=== PATIENT | female | born 1950 | race Caucasian/White ===

== ENCOUNTER 2023-01-15 02:11 | Emergency (ER) | payer MEDICARE, SELFPAY ==
[2023-01-15 02:14] VITALS: BP 118/72; PULSE 89; RESP 16; TEMP 36.8; O2SAT 96
--- NOTE | 2023-01-15 02:15 | DI.CT_ITS ---
Exam(s) CT HEAD CERVICAL SPINE WO EXAM: CT HEAD CERVICAL SPINE WO CLINICAL HISTORY: fall, pain. TECHNIQUE: Imaging Protocol: Axial computed tomography images with coronal and sagittal reformatted images were created and reviewed COMPARISON: CT HEAD WITHOUT CONTRAST from 09/29/2016 FINDINGS: BRAIN: There is air within the scalp soft tissues the frontal sinuses consistent with laceration. No radiop aque foreign body noted. There are no fractures frontal sinuses. There is fluid noted in the right maxillary sinus and right sphenoid sinus and small amount of fluid in the left maxillary sinus. No o bvious sinus fractures. No obvious orbital fractures. There is no evidence of intracranial hemorrhage, mass effect, or shift of midline structures. There are no extra-axial fluid collections. The ventricles are not enlarged or shifted and there is no blo od within the ventricular system nor within the basal cisterns. CERVICAL SPINE: There is no evidence of fracture nor listhesis. No significant prevertebral soft tissue swelling. There is chronic disc space narrowing at C5-6 and C6-7 levels. Multilevel facet arthropathy noted. There is no significant facet joint malalignment. No significant osseous lesions evident. IMPRESSION: No acute intracranial findings on this noninfused CT scan of the brain.Frontal scalp laceration. The re is no fracture nor fluid in the immediately subjacent frontal sinuses. There is fluid in the maxi llary sinuses right more than left without obvious fractures. Clinical correlation recommended to de termine facial bone CT scan would be recommended. No evidence of cervical spine fracture, malalignment, nor acute compromise of the cervical spinal can al. RADIATION DOSE DELIVERED: 1,233.42mGy.cm Total DLP DATA REPOSITORY: All CT scans at this facility are submitted to the National Radiology Data Registry (NRDR) Dose Index Registry (DIR) with the [employer] ([employer]). RADIATION OPTIMIZATION: All CT scans at this facility use at least one of these dose optimization te chniques: automated exposure control; mA and/or kV adjustment per patient size (includes targeted exa ms where dose is matched to clinical indication); or iterative reconstruction.
--- NOTE | 2023-01-15 02:27 | ED.GENADUL_ITS ---
Discharge Plan Disposition Patient Disposition: Home Condition: Stable Discharge Details Clinical Impression: Blunt head trauma, Forehead laceration Primary Care Provider: Unknown,Unknown ED Provider: Eduardo Mason Home Meds and New Rx's Prescriptions: Continued ibuprofen 800 MG tablet 800 mg PO BID PRNQty: 180 omeprazole 20 MG capsule,delayed release(DR/EC) 40 mg PO DAILY Qty: 90 3RF multivitamin [Daily Multiple] 1 EACH tablet 1 ea PO DAILY acetaminophen [Tylenol] 325 MG tablet 650 mg PO Q4H PRN PRNQty: 0 0RF Rx Instructions: no more than 3 g daily duloxetine 60 mg capsule,delayed release(DR/EC) 60 mg PO DAILY Patient Comments: TAKE 1 CAPSULE BY MOUTH EVERY DAY AT BEDTIME doxycycline monohydrate 100 mg capsule 100 mg PO DAILY Patient Comments: TAKE 1 CAPSULE BY MOUTH EVERY 12 HOURS FOR 10 DAYS atorvastatin 40 mg tablet 40 mg PO DAILY Patient Comments: TAKE 1 TABLET BY MOUTH ONCE DAILY esomeprazole magnesium 40 mg capsule,delayed release(DR/EC) 40 mg PO DAILY Patient Comments: TAKE 1 CAPSULE BY MOUTH ONCE DAILY mirtazapine 15 mg tablet 15 mg PO .QHS Patient Comments: TAKE 1 TABLET BY MOUTH ONCE DAILY AT BEDTIME fluticasone propionate 50 mcg/actuation spray,suspension INTRANASAL Patient Comments: USE 1 SPRAY(S) IN EACH NOSTRIL ONCE DAILY aripiprazole 5 mg tablet 5 mg PO DAILY Patient Comments: TAKE 1 TABLET BY MOUTH ONCE DAILY FOR 30 DAYS Discharge Instructions Instructions: Facial Laceration (ED) Additional Instructions: Return in 7-10 days to have the sutures removed, sooner if signs of infection such as spreading redness or yellow/white discharge from the wound if you feel more ill, have severe head pain or persistent vomiting return to the emergency department Medical Decision Making 72 yo female comes in with a forehead laceration after a fall. She is staying in an [place], woke up tonight to urinate and tripped on a quilt that is on the floor causing her to fall foreward and hit her head on a dresser. Denies loc and has no n/v, denies preceding symptoms states it was purely a mechanical fall and felt well all day yesterday. She is caox4 on arrival and ambulatory. She has a 2.5cm linear laceration that runs verticallon the left mid forehead. PERRL, EOMI, no other pain elsewhere and has no tenderness of chest, abdomen, or back and has no c spine tenderness. Given her age will proceed with ct head/c spine to evaluate for traumatic injuries. imaging unremarkable, pt stable and no new complaints, closed wound with 2 sutures, no complications and she tolerated well. STable for d/c, will return for suture removal and return precautions given Differential Diagnosis Differential Diagnosis: lac, tbi, concussion Imaging Data Radiologic Study: Attestation: I personally reviewed and interpreted this imaging study as follows: Imaging: CT Scan Radiologist's impression: no acute findings HPI General Mode of arrival: ambulatory . Date/Time Provider Initiated Documentation: 01/15/23 02:12 . Limitations to Documentation: no limitations . Information obtained by: patient . History of Present Illness 72 year old F presents to the emergency department with the chief complaint of fall, head trauma, described as moderate, Patient started experiencing this hour(s) (1) and it has been constant. No relieving factors improve symptom(s), No exacerbating factors reported . Patient did receive the following treatments prior to arrival, none Related Data Home Medications Medication Instructions Recorded Confirmed multivitamin (Daily Multiple 1 ea PO DAILY 09/29/16 01/15/23 tablet) acetaminophen 325 mg tablet 650 mg PO Q4H PRN PRN ##0 10/01/16 01/15/23 (Tylenol) ibuprofen 800 mg tablet 800 mg PO BID PRN #180 tab-caps 04/07/17 01/15/23 omeprazole 20 mg capsule,delayed 40 mg PO DAILY #90 tab-caps 09/06/17 01/15/23 release aripiprazole 5 mg tablet 5 mg PO DAILY 01/15/23 01/15/23 atorvastatin 40 mg tablet 40 mg PO DAILY 01/15/23 01/15/23 doxycycline monohydrate 100 mg 100 mg PO DAILY 01/15/23 01/15/23 capsule duloxetine 60 mg capsule,delayed 60 mg PO DAILY 01/15/23 01/15/23 release esomeprazole magnesium 40 mg 40 mg PO DAILY 01/15/23 01/15/23 capsule,delayed release fluticasone propionate 50 intranasal 01/15/23 mcg/actuation nasal spray,suspension mirtazapine 15 mg tablet 15 mg PO .QHS 01/15/23 01/15/23 Previous Rx's Medication Instructions Recorded acetaminophen 325 mg tablet 650 mg PO Q4H PRN PRN ##0 10/01/16 (Tylenol) omeprazole 20 mg capsule,delayed 40 mg PO DAILY #90 tab-caps 09/06/17 release Allergies Allergy/AdvReac Type Severity Reaction Status Date / Time iodine Allergy Intermediate SKIN RASH Unverified 01/15/23 02:19 benzalkonium Allergy Unknown PT. Unverified 01/15/23 02:19 REACTED TO TROPICAMIDE zolpidem AdvReac Severe Ataxia, Unverified 01/15/23 02:19 Confusion,psychosis latex AdvReac Mild CONTACT Unverified 01/15/23 02:19 DERMATITIS paraben AdvReac Mild Skin Rash Unverified 01/15/23 02:19 bonopol AdvReac Intermediate Uncoded 01/15/23 02:19 General Stated Complaint: HeadInjury FRANKIE: 3 Review of Systems All systems reviewed & are unremarkable except as noted in HPI and below Constitutional Constitutional: Denies chills, Denies fever(s) and Denies weakness Eyes Eyes: Denies loss of vision Cardiovascular Cardiovascular: Denies chest pain and Denies dyspnea Respiratory Respiratory: Denies cough and Denies dyspnea Gastrointestinal Gastrointestinal: Denies abdominal pain, Denies nausea and Denies vomiting Musculoskeletal Musculoskeletal: Denies joint swelling Neurologic Neurologic: Denies loss of vision and Denies weakness PFSH All Active Problems (Updated 01/15/23 @ 02:57 by Eduardo Mason MD) Blunt head trauma (Acute) Forehead laceration (Acute) Surgical History (Updated 03/30/18 @ 14:34 by [employer] MD) Breast surgery Cyst removal-left breast Cholecystectomy Hysterectomy Family History Mother Essential hypertension Depression Heart disease Hyperlipidemia Renal failure Father Essential hypertension Heart disease Hyperlipidemia Neoplasm COLON Stroke TIA Sister Diabetes Essential hypertension Depression Sister Depression Grandfather Stroke Grandfather Heart disease Grandmother No problems noted. Grandmother Heart disease Son No problems noted. Son No problems noted. Daughter Depression Asthma Brother No problems noted. Social History Smoking/Tobacco Use Status: Former Tobacco Use Smoking risk assessment performed?: Yes Drug use: Occasionally Substance use type: former substance user Do you feel safe in your relationship?: Yes Exam Const General: no acute distress Orientation: alert HENMT Head: no palpable skull fracture and normocephalic Ears: external ears normal General nose exam: external nose normal Mouth: moist mucous membranes Eyes General: appearance normal, both eyes and all related structures Neck Neck: normal visual inspection Resp Effort & Inspection: normal respiratory effort and able to speak in complete sentences Cardio Rate: regular rate Skin General skin exam: no rashes or lesions noted Neuro General: patient alert and patient oriented x3 Extrem General: normal to inspection Psych Mental Status: mental status grossly normal Course Vital Signs Vital signs: Vital Signs Temperature 36.8 C 01/15/23 02:14 Pulse 89 01/15/23 02:14 Respiratory Rate 16 01/15/23 02:14 Blood Pressure 118/72 01/15/23 02:14 Pulse Oximetry 96 01/15/23 02:14 Temperature 36.8 C 01/15/23 02:14 Temperature Source Temporal Artery Scan 01/15/23 02:14 Pulse 89 01/15/23 02:14 Respiratory Rate 16 01/15/23 02:14 Respiratory Effort Normal 01/15/23 02:14 Blood Pressure 118/72 01/15/23 02:14 Blood Pressure Position Supine 01/15/23 02:14 Pulse Oximetry 96 01/15/23 02:14 Oxygen Delivery Method Room Air 01/15/23 02:14 Oxygen Flow Rate 0 01/15/23 02:14 Pain Level 4 01/15/23 02:14 Procedures Laceration Laceration 1: Site: face Side (If applicable): left Size (cm): 2.5 Description: linear Depth: simple, single layer Local Anesthetic: Lidocaine 1% and with Epi Amount of anesthesia used (mL): 6 Pre-repair: wound explored and irrigated extensively Skin layer closed with: nylon Size (cm): 5-0 Number of sutures: 2 Technique: simple, interrupted
[2023-01-15] MEDS: Acetaminophen 500 MG TAB 1000 MG PO (02:52)
--- NOTE | 2023-01-15 02:58 | DI.VRAD_ITS ---
PROCEDURE INFORMATION: Exam: CT Head Without Contrast Exam date and time: 01/15/2023 2:45 AM Age: 72 years old Clinical indication: Injury or trauma; Fall; Concussion/head injury; Consciousness not specified TECHNIQUE: Imaging protocol: Computed tomography of the head without contrast. Radiation optimization: All CT scans at this facility use at least one of these dose optimization techniques: automated exposure control; mA and/or kV adjustment per patient size (includes targeted exams where dose is matched to clinical indication); or iterative reconstruction. COMPARISON: MRI - BRAIN W/WO CONTRAST 09/30/2016 12:00 AM FINDINGS: Brain: Normal. No hemorrhage. Unremarkable white matter. No mass effect. Cerebral ventricles: No ventriculomegaly. Paranasal sinuses: Secretions right maxillary sphenoid sinuses. Mastoid air cells: Visualized mastoid air cells are well aerated. Bones/joints: Unremarkable. No acute fracture. Soft tissues: Unremarkable. IMPRESSION: No acute intracranial findings. PROCEDURE INFORMATION: Exam: CT Cervical Spine Without Contrast Exam date and time: 01/15/2023 2:45 AM Age: 72 years old Clinical indication: Injury or trauma; Fall; Concussion/head injury; Consciousness not specified TECHNIQUE: Imaging protocol: Computed tomography of the cervical spine without contrast. Radiation optimization: All CT scans at this facility use at least one of these dose optimization techniques: automated exposure control; mA and/or kV adjustment per patient size (includes targeted exams where dose is matched to clinical indication); or iterative reconstruction. COMPARISON: CR CERV SP.WITH OBL OR FLEX/EXT 04/30/2016 10:31 AM FINDINGS: Bones/joints: No acute fracture. Normal alignment. Lower cervical predominant degenerative disk disease and facet arthropathy with neuroforaminal and canal stenosis.. Lungs: Lung apices are normal. Soft tissues: Unremarkable. IMPRESSION: No acute findings. Dictated and Authenticated by: Eduardo Conley MD. Ordering:JASON Clark MD
--- NOTE | 2023-01-15 04:33 | NUR.NOTE ---
darci gómez applied.Nursing Note:
== END 2023-01-15 04:01 | disposition home or self-care (01) ==
LOC: ER 03:15
PROVIDERS: Emergency Provider Emergency Medicine
DX: S09.90XA Unspecified injury of head, initial encounter (principal); S01.81XA Laceration without foreign body of other part of head, initial encounter; W18.09XA Striking against other object with subsequent fall, initial encounter; Z23 Encounter for immunization
CPT/HCPCS: 12011; 90471; 99285; 70450; 72125; 99284

== ENCOUNTER 2023-01-23 11:12 | Emergency (ER) | payer MEDICARE, SELFPAY ==
--- NOTE | 2023-01-23 11:21 | ED.GENADUL_ITS ---
Discharge Plan Disposition Patient Disposition: Home Discharge Details Chief Complaint: SutureRem Clinical Impression: Encounter for removal of sutures Primary Care Provider: Rose,Local ED Provider: Ludwig Kinsey Home Meds and New Rx's Prescriptions: No Action ibuprofen 800 MG tablet 800 mg PO BID PRNQty: 180 omeprazole 20 MG capsule,delayed release(DR/EC) 40 mg PO DAILY Qty: 90 3RF multivitamin [Daily Multiple] 1 EACH tablet 1 ea PO DAILY acetaminophen [Tylenol] 325 MG tablet 650 mg PO Q4H PRN PRNQty: 0 0RF Rx Instructions: no more than 3 g daily duloxetine 60 mg capsule,delayed release(DR/EC) 60 mg PO DAILY Patient Comments: TAKE 1 CAPSULE BY MOUTH EVERY DAY AT BEDTIME doxycycline monohydrate 100 mg capsule 100 mg PO DAILY Patient Comments: TAKE 1 CAPSULE BY MOUTH EVERY 12 HOURS FOR 10 DAYS atorvastatin 40 mg tablet 40 mg PO DAILY Patient Comments: TAKE 1 TABLET BY MOUTH ONCE DAILY esomeprazole magnesium 40 mg capsule,delayed release(DR/EC) 40 mg PO DAILY Patient Comments: TAKE 1 CAPSULE BY MOUTH ONCE DAILY mirtazapine 15 mg tablet 15 mg PO .QHS Patient Comments: TAKE 1 TABLET BY MOUTH ONCE DAILY AT BEDTIME fluticasone propionate 50 mcg/actuation spray,suspension INTRANASAL Patient Comments: USE 1 SPRAY(S) IN EACH NOSTRIL ONCE DAILY aripiprazole 5 mg tablet 5 mg PO DAILY Patient Comments: TAKE 1 TABLET BY MOUTH ONCE DAILY FOR 30 DAYS Discharge Instructions Additional Instructions: Please monitor for any signs of infection and return the emergency department immediately if this occurs. Otherwise keep wound clean and dry follow-up with primary care provider as needed Referrals: Primary Care Provider [Outside] Medical Decision Making Patient presents the emergency department for suture removal. Patient denies any worsening of symptoms. 2 sutures were removed without incidence. No dehiscence, discussed with patient acute wound care and monitoring of symptoms along with return and follow-up precautions. After discussion of diagnosis and plan of care patient has no further needs, questions, or concerns and states clear understanding to return to the emergency department for any worsening symptoms. This documentation was generated using [employer] system, please disregard any oddities of phrase or misspellings. HPI General Mode of arrival: ambulatory . Date/Time Provider Initiated Documentation: 01/23/23 11:13 . Limitations to Documentation: no limitations . Information obtained by: patient, RN notes reviewed and old records reviewed . History of Present Illness 72 year old F presents to the emergency department with the chief complaint of Suture removal, Patient notes no other symptoms.. Related Data Home Medications Medication Instructions Recorded Confirmed multivitamin (Daily Multiple 1 ea PO DAILY 09/29/16 01/23/23 tablet) acetaminophen 325 mg tablet 650 mg PO Q4H PRN PRN ##0 10/01/16 01/23/23 (Tylenol) ibuprofen 800 mg tablet 800 mg PO BID PRN #180 tab-caps 04/07/17 01/23/23 omeprazole 20 mg capsule,delayed 40 mg PO DAILY #90 tab-caps 09/06/17 01/23/23 release aripiprazole 5 mg tablet 5 mg PO DAILY 01/15/23 01/23/23 atorvastatin 40 mg tablet 40 mg PO DAILY 01/15/23 01/23/23 doxycycline monohydrate 100 mg 100 mg PO DAILY 01/15/23 01/15/23 capsule duloxetine 60 mg capsule,delayed 60 mg PO DAILY 01/15/23 01/23/23 release esomeprazole magnesium 40 mg 40 mg PO DAILY 01/15/23 01/23/23 capsule,delayed release fluticasone propionate 50 intranasal 01/15/23 mcg/actuation nasal spray,suspension mirtazapine 15 mg tablet 15 mg PO .QHS 01/15/23 01/23/23 Previous Rx's Medication Instructions Recorded acetaminophen 325 mg tablet 650 mg PO Q4H PRN PRN ##0 10/01/16 (Tylenol) omeprazole 20 mg capsule,delayed 40 mg PO DAILY #90 tab-caps 09/06/17 release Allergies Allergy/AdvReac Type Severity Reaction Status Date / Time iodine Allergy Intermediate SKIN RASH Unverified 01/23/23 11:17 benzalkonium Allergy Unknown PT. Unverified 01/23/23 11:17 REACTED TO TROPICAMIDE zolpidem AdvReac Severe Ataxia, Unverified 01/23/23 11:17 Confusion,psychosis latex AdvReac Mild CONTACT Unverified 01/23/23 11:17 DERMATITIS paraben AdvReac Mild Skin Rash Unverified 01/23/23 11:17 bonopol AdvReac Intermediate Uncoded 01/23/23 11:17 General Stated Complaint: SutureRem FRANKIE: 4 Review of Systems Constitutional Constitutional: Denies fever(s) Integumentary/Breasts Skin/Breast: Denies rash PFSH All Active Problems Blunt head trauma (Acute) Forehead laceration (Acute) Encounter for removal of sutures (Acute) Surgical History Breast surgery Cyst removal-left breast Cholecystectomy Hysterectomy Family History Mother Essential hypertension Depression Heart disease Hyperlipidemia Renal failure Father Essential hypertension Heart disease Hyperlipidemia Neoplasm COLON Stroke TIA Sister Diabetes Essential hypertension Depression Sister Depression Grandfather Stroke Grandfather Heart disease Grandmother No problems noted. Grandmother Heart disease Son No problems noted. Son No problems noted. Daughter Depression Asthma Brother No problems noted. Social History Smoking/Tobacco Use Status: Former Tobacco Use Smoking risk assessment performed?: Yes Drug use: Occasionally Substance use type: former substance user Do you feel safe in your relationship?: Yes Exam Const General: cooperative, comfortable and no acute distress Orientation: alert, awake and oriented x3 Skin Rashes: no rashes Trauma: laceration (healing well laceration without erythema, purulence, or dehiscence.) Course Vital Signs Vital signs: Temperature Source Skin 01/23/23 11:15 Respiratory Effort Normal 01/23/23 11:18 Blood Pressure Position Sitting 01/23/23 11:15 Oxygen Delivery Method Room Air 01/23/23 11:15 Oxygen Flow Rate 0 01/23/23 11:15 Pain Level 0 01/23/23 11:15
== END 2023-01-23 14:53 | disposition home or self-care (01) ==
PROVIDERS: Emergency Provider Nurse Practitioner Family
DX: Z48.02 Encounter for removal of sutures (principal)

== ENCOUNTER 2023-11-25 21:21 | Outpatient (REF) | payer MEDICARE, SELFPAY ==
[2023-11-25 21:14] LABS: Bacteria Few HPF (Negative); Casts Negative LPF (Negative); Crystals Negative HPF (Negative); Epithelial Cells Few HPF (Negative); Mucus Negative (Negative); RBC 0-2 HPF (0-2)
[2023-11-25 21:15] LABS: C & S Indicated? C&S Done As Ordered
== END 2023-11-25 21:22 | disposition home or self-care (01) ==
LOC: LBN 21:21
PROVIDERS: Visit Provider Physician Assistant Medical
DX: R30.0 Dysuria (principal); B96.29 Other Escherichia coli [E. coli] as the cause of diseases classified elsewhere
CPT/HCPCS: 87077; 81015; 87086; 87186

== ENCOUNTER 2024-02-14 10:56 | Emergency (ER) | payer MEDICARE, SELFPAY ==
[2024-02-14] VITALS (53 sets, daily range): BP systolic 113–132; BP diastolic 71–99; PULSE 78–105; RESP 14–29; TEMP 36.6; O2SAT 94–98
--- NOTE | 2024-02-14 11:00 | DI.RAD_ITS ---
Exam(s) XR PORTABLE CHEST AP EXAM: XR PORTABLE CHEST AP CLINICAL HISTORY: Chest pain, SOB. TECHNIQUE: 2D digital imaging was performed. COMPARISON: CR CHEST 2 VIEWS PA,LAT from 05/17/2017 FINDINGS: Single AP portable view. There chest leads in place. Heart size normal. Mediastinum is not widened. Left lung is clear. There mildly increased markings in the right lower lobe but without significant change from 2017 and most probably just vascular markings. There are no pleural effusions. No pulmo nary edema. No pneumothorax. No fractures. IMPRESSION: No obvious acute pulmonary findings on this single AP portable view of the chest. DATA REPOSITORY: RADIATION DOSE DELIVERED:
--- NOTE | 2024-02-14 11:00 | RT.EKG_ITS ---
APPROVED REPORT Exam: Resting ECG Reason for Exam: Chest Pain Patient Location: E HR:99 bpm ECG Measurements Heart Rate 99 AXIS RI 141 P 69 QRSd 88 QRS 49 QT 382 T 48 QTc 475 Conclusion Sinus rhythm...normal P axis, V-rate 60- 99 Ventricular premature complex...V complex w/ short R-R interval Probable left atrial enlargement...P >50mS, <-0.10mV V1
--- NOTE | 2024-02-14 11:31 | ED.GENADUL_ITS ---
Discharge Plan Disposition Patient Disposition: Home Condition: Stable Discharge Details Clinical Impression: Pneumonia, Hypomagnesemia Primary Care Provider: Unknown,Unknown ED Provider: Krista Hairston Home Meds and New Rx's Prescriptions: New doxycycline hyclate 100 mg capsule 100 mg PO BID 10 Days Qty: 20 0RF Rx Instructions: Take one tablet twice daily x 10 days Continued ibuprofen 800 MG tablet 800 mg PO BID PRNQty: 180 multivitamin [Daily Multiple] 1 EACH tablet 1 ea PO DAILY acetaminophen [Tylenol] 325 MG tablet 650 mg PO Q4H PRN PRNQty: 0 0RF Rx Instructions: no more than 3 g daily duloxetine 60 mg capsule,delayed release(DR/EC) 60 mg PO DAILY Patient Comments: TAKE 1 CAPSULE BY MOUTH EVERY DAY AT BEDTIME atorvastatin 40 mg tablet 40 mg PO DAILY Patient Comments: TAKE 1 TABLET BY MOUTH ONCE DAILY esomeprazole magnesium 40 mg capsule,delayed release(DR/EC) 40 mg PO DAILY Patient Comments: TAKE 1 CAPSULE BY MOUTH ONCE DAILY mirtazapine 15 mg tablet 15 mg PO .QHS Patient Comments: TAKE 1 TABLET BY MOUTH ONCE DAILY AT BEDTIME hydroxyzine pamoate 50 mg capsule 50 mg PO DAILY PRN Patient Comments: TAKE 1 CAPSULE BY MOUTH AT BEDTIME NEEDED FOR ANXIETY ONCE DAILY Multivitamin Women 50 Plus 8 mg iron-400 mcg-50 mcg tablet 1 tab PO DAILY biotin 1 mg capsule 1 mg PO DAILY docusate sodium [Colace] 100 mg capsule 100 mg PO DAILY Discharge Instructions Instructions: Low Magnesium Level, Pneumonia, Adult ED Additional Instructions: The x-ray today shows that you have pneumonia. No evidence of heart attack today. No evidence of COVID flu or RSV. Your magnesium was also very low, you were given a supplement of that here in the emergency department today. Please increase your diet with magnesium rich foods. Follow up with primary care provider in 3-5 days. Return to ED sooner if any worsening or concerns. Please take the antibiotic with yogurt or a probiotic as directed. Please take Tylenol or Ibuprofen with food every 4-6 hours as needed for pain and swelling. Referrals: Primary Care Provider [Outside] - 5 days HPI General Mode of arrival: ambulatory . Date/Time Provider Initiated Documentation: 02/14/24 10:57 . Limitations to Documentation: no limitations . Information obtained by: patient, RN notes reviewed and old records reviewed . HPI Narrative: 73-year-old female presents to the ER with a chief complaint of cold URI symptoms x 1 week, now having some chest pains which started yesterday. Reports intermittent jaw and radiating arm pain. She reports productive cough this morning. She does report pain in her abdomen after eating. Did not take aspirin this morning. Has past medical history of high cholesterol, cholecystectomy hysterectomy breast surgery. Related Data Home Medications ?Medication ?Instructions ?Recorded ?Confirmed multivitamin (Daily Multiple 1 ea PO DAILY 09/29/16 02/14/24 tablet) acetaminophen 325 mg tablet 650 mg (2 x 325 mg) PO Q4H PRN PRN 10/01/16 02/14/24 (Tylenol) ##0 ibuprofen 800 mg tablet 800 mg PO BID PRN #180 tab-caps 04/07/17 02/14/24 atorvastatin 40 mg tablet 40 mg PO DAILY 01/15/23 02/14/24 duloxetine 60 mg capsule,delayed 60 mg PO DAILY 01/15/23 02/14/24 release esomeprazole magnesium 40 mg 40 mg PO DAILY 01/15/23 02/14/24 capsule,delayed release mirtazapine 15 mg tablet 15 mg PO .QHS 01/15/23 02/14/24 biotin 1 mg capsule 1 mg PO DAILY 02/14/24 02/14/24 docusate sodium 100 mg capsule 100 mg PO DAILY 02/14/24 02/14/24 (Colace) doxycycline hyclate 100 mg capsule 100 mg PO BID Pneumonia 10 days 02/14/24 #20 caps hydroxyzine pamoate 50 mg capsule 50 mg PO DAILY PRN 02/14/24 02/14/24 [id number] 8 mg-folic 400 1 tab PO DAILY 02/14/24 02/14/24 mcg-K 50 mcg-lutein 300 mcg tablet (Multivitamin Women 50 Plus) Previous Rx's ?Medication ?Instructions ?Recorded acetaminophen 325 mg tablet 650 mg (2 x 325 mg) PO Q4H PRN PRN 10/01/16 (Tylenol) ##0 doxycycline hyclate 100 mg capsule 100 mg PO BID Pneumonia 10 days 02/14/24 #20 caps Allergies Allergy/AdvReac Type Severity Reaction Status Date / Time iodine Allergy Intermediate SKIN RASH Unverified 01/23/23 11:17 benzalkonium Allergy Unknown PT. Unverified 01/23/23 11:17 REACTED TO TROPICAMIDE zolpidem AdvReac Severe Ataxia, Unverified 01/23/23 11:17 Confusion,psychosis latex AdvReac Mild CONTACT Unverified 01/23/23 11:17 DERMATITIS paraben AdvReac Mild Skin Rash Unverified 01/23/23 11:17 bonopol AdvReac Intermediate Uncoded 01/23/23 11:17 General Stated Complaint: Chest Pain FRANKIE: 3 Review of Systems All systems reviewed & are unremarkable except as noted in HPI and below Cardiovascular Cardiovascular: Reports chest pain and Reports dyspnea Respiratory Respiratory: Reports cough and Reports dyspnea Gastrointestinal Gastrointestinal: Reports diarrhea, Denies nausea and Denies vomiting Exam Narrative Exam Narrative: Constitutional: Alert and oriented x3. Appears stated age. Normal body habitus. Head: Normocephalic, no trauma. Eyes: Pupils PERRL, Red reflex noted, EOM's intact. Eyelids symmetrical without lesions, discharge, or swelling. ENT: Bilateral TM's WNL, External ear normal to inspection, no mastoid TTP, swelling, or erythema, Nasal turbinates WNL, no nasal discharge. Normal dentition, Posterior pharynx WNL, no exudate. Chest: RRR, Normal S1, S2, distal pulses intact. Resp: Lungs clear to auscultation bilaterally, no wheezes, rales, or rhonchi. Abdomen: Soft, non-distended, Normoactive bowel sounds all 4 quads. Musculoskeletal: Normal gait, Moves all 4 extremities without difficulty. Skin: No suspicious rashes or lesions. Capillary refill less than 2 sec. Neurologic: Cranial nerves II-XII intact. Alert and oriented x 3. Motor: No deficits noted. Sensory: Intact bilaterally all 4 extremities. Hematologic/Lymphatic: No ecchymosis, no lymphadenopathy. Course Vital Signs Vital signs: Vital Signs Temperature 36.6 C 02/14/24 10:58 Pulse 95 H 02/14/24 10:58 Respiratory Rate 25 H 02/14/24 10:58 Blood Pressure 113/71 02/14/24 10:58 Pulse Oximetry 98 02/14/24 10:58 Temperature 36.6 C 02/14/24 10:58 Temperature Source Oral 02/14/24 10:58 Pulse 95 H 02/14/24 10:58 Respiratory Rate 25 H 02/14/24 10:58 Blood Pressure 113/71 02/14/24 10:58 Pulse Oximetry 98 02/14/24 10:58 Oxygen Delivery Method Room Air 02/14/24 10:58 Oxygen Flow Rate 0 02/14/24 10:58 Pain Level 4 02/14/24 10:58 Medical Decision Making 73-year-old female presents to the ER with a chief complaint of cold URI symptoms x 1 week, now having some chest pains which started yesterday. Reports intermittent jaw and radiating arm pain. She reports productive cough this morning. She does report pain in her abdomen after eating. Did not take aspirin this morning. Has past medical history of high cholesterol, cholecystectomy hysterectomy breast surgery. Cardiac workup ordered including serial troponins, chest x-ray and Fluvid swab will give 324 of aspirin and check a lipase. Differential diagnosis includes not limited to URI, viral illness, COVID, CAD, CBC shows no leukocytosis, D-dimer slightly elevated at 686 however according to age-adjusted D-dimer this is within normal limits, chloride 108 anion gap 11.3 mag is 1.2 will give 1 g of IV magnesium. COVID flu and RSV are negative. Lipase within normal limits. Chest x-ray shows opacity in the medial right base may represent atelectasis or pneumonia. Will treat for pneumonia based on patient's URI type symptoms for the last week. Will give Doxycycline tablets x 10 days. Discussed results, verbalized understanding. Insert [employer] specialist Medical Records Medical records reviewed: Yes I reviewed the patient's medical records. Lab Data Lab results reviewed: Yes I reviewed the patient's lab results. Labs: Laboratory Tests Range/Units 02/14/24 02/14/24 11:26 14:10 WBC (4.4-10.8) 10^3/uL 5.73 RBC (3.93-5.22) 10^6/uL 4.62 Hgb (11.2-15.7) g/dL 13.9 Hct (36.0-46.0) % 41.1 MCV (80-95) fL 89 MCH (27.0-33.0) pg 30.1 MCHC (32.0-36.0) % 33.8 RDW (11.7-14.6) % 13.4 Plt Count (130-400) 10^3/uL 288 MPV (8.0-11.0) fL 9.5 Immature Gran % % 0.2 Neutrophils % % 68.0 Lymphocytes % % 21.8 Monocytes % % 8.0 Eosinophils % % 1.7 Basophils % % 0.3 Nucleated RBC % (0.0-0.3) % 0.0 Absolute Neutrophils (1.2-6.7) 10^3/uL 3.89 Absolute Lymphocytes (1.2-3.4) 10^3/uL 1.25 Absolute Monocytes (0.1-0.8) 10^3/uL 0.46 Absolute Eosinophils (0.0-0.7) 10^3/uL 0.10 Absolute Basophils (0.0-0.2) 10^3/uL 0.02 PT (9.1-11.1) sec 9.8 INR (0.9-1.1) 1.0 D-Dimer (<500) ng/mlFEU 686 H Sodium (136-145) mmol/L 142 Potassium (3.5-5.1) mmol/L 3.8 Chloride (98-107) mmol/L 108 H Carbon Dioxide (21.0-32.0) mmol/L 22.7 Anion Gap (3-11) mmol/L 11.3 H BUN (7-18) mg/dL 17 Creatinine (0.55-1.02) mg/dL 1.0 Est GFR (CKD-EPI 2020) (mL/min/1.73m2) 59.12 Glucose (74-106) mg/dL 103 Calcium (8.5-10.1) mg/dL 9.7 Magnesium (1.8-2.4) mg/dL 1.2 L Total Bilirubin (0.2-1.0) mg/dL 0.34 AST (15-37) U/L 21 ALT (14-59) U/L 23 Alkaline Phosphatase (46-116) U/L 114 Troponin I (< or =60) ng/L < 50 Cancelled Total Protein (6.4-8.2) g/dL 7.3 Albumin (3.4-5.0) g/dL 3.5 Lipase (16-77) U/L 51 COVID-19 Source Nasopharynx SARS-CoV-2 (PCR) (Negative) Negative Influenza Type A (PCR) (Negative) Negative Influenza Type B (PCR) (Negative) Negative RSV (PCR) (Negative) Negative Quality:SDOH Health Related Social Needs: No Data to Display PFSH All Active Problems (Updated 02/14/24 @ 13:21 by Krista Hairston NP) Hypomagnesemia (Acute) Pneumonia (Acute) Surgical History Hysterectomy Cholecystectomy Breast surgery Cyst removal-left breast Family History Mother Essential hypertension Depression Heart disease Hyperlipidemia Renal failure Father Essential hypertension Heart disease Hyperlipidemia Neoplasm COLON Stroke TIA Sister Diabetes Essential hypertension Depression Sister Depression Grandfather Stroke Grandfather Heart disease Grandmother No problems noted. Grandmother Heart disease Son No problems noted. Son No problems noted. Daughter Depression Asthma Brother No problems noted. Social History Smoking/Tobacco Use Status: Former Tobacco Use Smoking risk assessment performed?: Yes Alcohol Intake: current Alcohol Intake frequency: a few times a week Drug use: Occasionally Substance use type: former substance user Housing: house Do you feel safe at home: Yes Do you feel safe in your relationship?: Yes
--- NOTE | 2024-02-14 11:36 | DI.VRAD_ITS ---
PROCEDURE INFORMATION: Exam: XR Chest Exam date and time: 02/14/2024 11:22 AM Age: 73 years old Clinical indication: Pain; Shortness of breath; Chest pressure TECHNIQUE: Imaging protocol: Radiologic exam of the chest. Views: 1 view. COMPARISON: CR CHEST 2 VIEWS PA,LAT 05/17/2017 12:33 PM FINDINGS: Lungs: Opacity in the medial right base. Pleural spaces: Unremarkable. No pleural effusion. No pneumothorax. Heart/Mediastinum: Unremarkable. No cardiomegaly. Bones/joints: Unremarkable. IMPRESSION: Opacity in the medial right base may represent atelectasis or pneumonia Dictated and Authenticated by: Aime Topete MD. Ordering:MARKUS Velasco MD
[2024-02-14] MEDS: Aspirin 81 MG CHEW 324 MG CH (11:39)
[2024-02-14 11:41] LABS: Abs Immature Grans 0.01 10^3/uL (0.0-0.06); Absolute Basophil Count 0.02 10^3/uL (0.0-0.2); Absolute Lymphocyte Count 1.25 10^3/uL (1.2-3.4); Absolute Monocyte Count 0.46 10^3/uL (0.1-0.8); Absolute Neutrophil Count 3.89 10^3/uL (1.2-6.7); Basophils % 0.3 %; Eosinophils % 1.7 %; HCT 41.1 % (36.0-46.0); HGB 13.9 g/dL (11.2-15.7); Immature Grans % 0.2 %; Lymphocytes % 21.8 %; MCH 30.1 pg (27.0-33.0); MCHC 33.8 % (32.0-36.0); MCV 89 fL (80-95); MPV 9.5 fL (8.0-11.0); Platelet Count 288 10^3/uL (130-400); RBC 4.62 10^6/uL (3.93-5.22); RDW 13.4 % (11.7-14.6); RDW-SD 43.8 fL; WBC 5.73 10^3/uL (4.4-10.8)
[2024-02-14 11:49] LABS: Lipase 51 U/L (16-77)
[2024-02-14 11:51] LABS: Prothrombin Time 9.8 sec (9.1-11.1)
[2024-02-14 11:57] LABS: ALT 23 U/L (14-59); AST 21 U/L (15-37); Albumin 3.5 g/dL (3.4-5.0); Alkaline Phosphatase 114 U/L (46-116); Anion Gap 11.3 mmol/L (3-11); BUN 17 mg/dL (7-18); Bilirubin, Total 0.34 mg/dL (0.2-1.0); CO2 22.7 mmol/L (21.0-32.0); Calcium 9.7 mg/dL (8.5-10.1); Chloride 108 mmol/L (98-107); Estimated GFR 59.12 (mL/min/1.73m2); Glucose 103 mg/dL (74-106); Magnesium 1.2 mg/dL (1.8-2.4); Potassium 3.8 mmol/L (3.5-5.1); Sodium 142 mmol/L (136-145); Total Protein 7.3 g/dL (6.4-8.2); Troponin I < 50 ng/L (< or =60)
[2024-02-14 12:16] LABS: D-Dimer 686 ng/mlFEU (<500)
[2024-02-14 12:20] LABS: COVID-19 PCR Negative (Negative); Influenza A PCR Negative (Negative); Influenza B PCR Negative (Negative); RSV PCR Negative (Negative)
[2024-02-14 12:22] LABS: Source Nasopharynx
[2024-02-14] MEDS: MAGNESIUM SULFATE 1 GM/100 ML BAG IVINF (12:40)
[2024-02-14] MEDS: DOXYCYCLINE 100 MG in Normal Saline 100 ML IVPB (12:40)
[2024-02-14] MEDS: Magnesium Oxide 400 MG TAB PO (13:21)
[2024-02-14] MEDS: Doxycycline Hyclate 100 MG, 2 CAPS/BTL PO (14:05)
== END 2024-02-14 14:04 | disposition home or self-care (01) ==
LOC: ER 13:26
PROVIDERS: Emergency Provider Registered Nurse Emergency
DX: J18.9 Pneumonia, unspecified organism (principal); R07.9 Chest pain, unspecified; R05.1 Acute cough; R10.9 Unspecified abdominal pain; E83.42 Hypomagnesemia
CPT/HCPCS: 36415; 80053; 83690; 87637; 93005; 96365; 96367; 99284; 71045; 83735; 84484; 85025; 85379; 85610; 93010; 99283; J3475